=== PATIENT | female | born 1970 | race Hispanic/Latino ===

== ENCOUNTER 2024-12-06 14:46 | Emergency (ER) | payer OTHER ==
[~2024-12-06] VITALS: Ht 162.6 cm; Wt 65.8 kg
[~2024-12-06 14:46] MED LIST: PANT20TA18 PO
[2024-12-06 15:45] LABS: IMMATURE GRANULOCYTE ABSOLUTE 0.05 K/uL (0-1); NUCLEATED RED BLOOD CELLS 0.0 % (0.0-0.19); PLATELET COUNT (AUTO) 188 K/uL (130-400); RED BLOOD CELL COUNT(AUTO) 5.15 MIL/uL (4.00-5.50); RED CELL DISTRIBUTION WIDTH 14.8 % (11.0-15.5); WHITE BLOOD COUNT (AUTO) 7.3 K/uL (4.8-10.8)
[2024-12-06 16:02] LABS: CREATININE 0.6 mg/dL (0.5-1.0); GLOMERULAR FILTR. RATE CALC 108 mL/min (>90); GLUCOSE,RANDOM 125 mg/dL (70-105); SODIUM SERUM 138 mmol/L (136-145); UREA NITROGEN, BLOOD 10 mg/dL (7-18)
--- NOTE | 2024-12-06 16:15 | HMCIMG ---
EXAM: CR Chest, 1 View. CLINICAL HISTORY: sob COMPARISON: None provided. FINDINGS: LUNGS: The lungs show no infiltrate or other acute finding. PLEURAL SPACES: No evidence of pleural effusion or pneumothorax. MEDIASTINUM: Cardiac size and mediastinal contours within normal limits. BONES: No acute osseous abnormality. IMPRESSION: No acute cardiopulmonary pathology is evident. /[place]
[2024-12-06 16:17] LABS: ASPARTATE AMINOTRANSFERASE 26 U/L (10-37); TOTAL PROTEIN, SERUM 8.4 g/dL (6.0-8.3)
--- NOTE | 2024-12-06 17:08 | ERN ---
ED Note History of Present Illness Stated Complaint: SOB Chief Complaint: Shortness of Breath Time Seen by MD: 15:26 Dictation: 54-year-old female presenting to the emergency department with shortness of breath over the past few days patient reports she has been feeling anxious and having trouble breathing with slight chest discomfort, patient denies any past medical history no cough cold congestion or fevers. Allergies: Coded Allergies: No Known Drug Allergies (Unverified Allergy, Unknown, 04/05/24) Home Meds Active Scripts Pantoprazole Sodium (Pantoprazole Sodium) 20 Mg Tablet.dr, 1 TAB PO DAILY for 30 Days, #30 TAB 0 Refills Prov:MARIA LUZ MASCORRO G[employer]ER 04/05/24 Past Medical History Past Medical History: No Pertinent History Surgical History: Review of System Dictation Constitutional: Negative for fever,chills, and weight loss Eyes: Negative for injury, pain,redness, and discharge ENT: Negative for injury,pain or swelling Cardiovascular: Negative for chest pain, palpitations, and edema Respiratory: Per HPI Abdomen/GI: Negative for abdominal pain, nausea, vomiting, diarrhea, and constipation Back: Negative for injury and pain : Negative for injury, bleeding and discharge MS/Extremity: Negative for injury and deformity Skin: Negative for rash, and discoloration Neuro: Negative for headache, weakness, numbness, tingling, and seizure Psych: Negative for suicide ideation, homicidal ideation, and hallucinations Initial Vital Sign VS Vital Signs Date Time Temp Pulse Resp B/P (MAP) Pulse Ox O2 Delivery O2 Flow Rate FiO2 12/06/24 14:56 98.6 86 18 160/73 100 Room Air 12/06/24 15:30 0 21 Physical Exam Dictation General: awake, alert, NAD Head/Face: Normocephalic, atraumatic Eyes: PERRL, EOMI, vision at baseline ENT: oral cavity clear, TMs clear, no signs of infection Neck: Trachea midline, supple, no nuchal rigidity Cardiovascular: RRR, normal S1/S2, No MRGs, no JVD Respiratory: CTAB, no respiratory distress, No rales or wheezes Abdomen: Soft, non-tender, non-distended, normal bowel sounds, no guarding or rebound. Skin: Warm, dry, normal turgor, no rash MS/Extremity: Pulses equal, no cyanosis, neurovascular intact, FROM Neuro: COAx4, GCS 15, strength 5/5, CN 2-12 intact, normal cerebellar exam, normal gait, Psych: Normal behavior, mood, and affect normal Results (Laboratory/Radiology) Laboratory/Radiology Laboratory Tests Test 12/06/24 15:37 12/06/24 15:55 White Blood Count 7.3 K/uL (4.8-10.8) Red Blood Count 5.15 MIL/uL (4.00-5.50) Hemoglobin 13.9 g/dL (12.0-16.0) Hematocrit 42.0 % (36-48) Mean Corpuscular Volume 81.6 fL (79-99) Mean Corpuscular Hemoglobin 27.0 pg (27.0-33.0) Mean Corpuscular Hemoglobin Concent 33.1 g/dL (32.0-36.0) Red Cell Distribution Width 14.8 % (11.0-15.5) Platelet Count 188 K/uL (130-400) Mean Platelet Volume 11.5 fL (7.5-10.5) H Immature Granulocyte % (Auto) 0.7 % (0-1) Neutrophils (%) (Auto) 77.9 % (40.0-77.0) H Lymphocytes (%) (Auto) 14.5 % (21.0-51.0) L Monocytes (%) (Auto) 6.2 % (3.0-13.0) Eosinophils (%) (Auto) 0.1 % (0.0-8.0) Basophils (%) (Auto) 0.6 % (0.0-5.0) Neutrophils # (Auto) 5.7 K/uL (1.8-7.7) Lymphocytes # (Auto) 1.1 K/uL (1.0-4.8) Monocytes # (Auto) 0.5 K/uL (0.1-1.0) Eosinophils # (Auto) 0.01 K/uL (0.00-0.70) Basophils # (Auto) 0.04 K/uL (0.00-0.20) Absolute Immature Granulocyte (auto 0.05 K/uL (0-1) Nucleated Red Blood Cells 0.0 % (0.0-0.19) Sodium Level 138 mmol/L (136-145) Potassium Level 3.7 mmol/L (3.5-5.1) Chloride Level 102 mmol/L (101-111) Carbon Dioxide Level 27 mmol/L (21-32) Blood Urea Nitrogen 10 mg/dL (7-18) Creatinine 0.6 mg/dL (0.5-1.0) Glomerular Filtration Rate Calc 108 mL/min (>90) Random Glucose 125 mg/dL (70-105) H Lactic Acid Level 2.6 mmol/L (0.8-2.5) H Total Calcium 9.0 mg/dL (8.5-10.1) Total Bilirubin 0.2 mg/dL (0.2-1.0) Direct Bilirubin < 0.1 mg/dL (0.0-0.3) Aspartate Amino Transf (AST/SGOT) 26 U/L (10-37) Alanine Aminotransferase (ALT/SGPT) 42 U/L (12-78) Alkaline Phosphatase 97 U/L (50-136) Troponin I High Sensitivity < 4 ng/L (4-50) L B-Type Natriuretic Peptide < 5 pg/mL (0-100) Total Protein 8.4 g/dL (6.0-8.3) H Albumin 4.2 g/dL (3.5-5.0) SARS-CoV-2 Antigen (Rapid) PRESUMPTIVE NEGATIVE Labs Reviewed?: Yes EKG Comment: Heart rate 78, normal sinus rhythm normal intervals no STEMI or STEMI equivalent ED Course ED Course Orders Procedure Category Date Status Time B-Type Natriuretic LAB 12/06/24 Complete Peptide 15:26 Covid19 (Sars Antigen LAB 12/06/24 Complete Rapid) 15:26 12 Lead Ekg Tracing- EKG 12/06/24 Logged Technical 15:26 Basic Metabolic Panel LAB 12/06/24 Complete 15:26 Blood Cult ANILA 12/06/24 In Process 15:26 Cbc With Differential LAB 12/06/24 Complete 15:26 Hepatic Function Panel LAB 12/06/24 Complete 15:26 Lactic Acid LAB 12/06/24 Complete 15:26 Troponin I High LAB 12/06/24 Complete Sensitivity 15:26 Chest 1vw RAD 12/06/24 Resulted 15:26 Vital Signs Date Time Temp Pulse Resp B/P (MAP) Pulse Ox O2 Delivery O2 Flow Rate FiO2 12/06/24 15:30 99.0 67 20 141/72 97 Room Air* 0 21 12/06/24 14:56 98.6 86 18 160/73 100 Room Air Medical Decision Making MDM MDM: Differential diagnosis: Rationale: Tests considered and ordered secondary to shared decision making include: Previous outside records reviewed: Old ER visits. Risk of complication and/or morbidity or mortality of patient management: None Medications-Per medication reconciliation Need for hospitalization: Patient does not meet criteria for hospitalization. Need for emergency major/minor surgery: No There are no social concerns with this patient. Prescription drug management Prescriptions will include symptomatic care Patient's prior external medical records from other ER visits were reviewed by me as indicated. Prior testing and results from previous visits were reviewed. Prior tests were taken into account with medical decision making and resource utilization, independent historian/historians were used to obtain complete medical history. I independently interpreted the test that were performed, results were reviewed by me and considered findings on radiology if ordered. Medical management and examination interpretation discussions were had by me with other qualified healthcare professionals as indicated for the patient's care. 54 year-old female with shortness of breath stable exam negative workup, no clin ical risk factors for pulmonary emboli, patient is oxygenating well on room air no distress no chest pain at current time stable for discharge and follow up with primary care doctor DX & DISP Disposition: Discharge Departure Impression: Primary Impression: Dyspnea Condition: Stable Referrals: SELF,REFERRAL (PCP) TEODORO MORENO MD Dec 06, 2024 17:08
[2024-12-06 17:15] VITALS: BP 119/64; PULSE 70; RESP 20; TEMP 97.6; O2SAT 98
== END 2024-12-06 17:34 | disposition home or self-care (01) ==
LOC: EDH 14:46
DX: R06.00 Dyspnea, unspecified (principal); Z20.822 Contact with and (suspected) exposure to COVID-19; Z79.899 Other long term (current) drug therapy
CPT/HCPCS: 36415; 71045; 80048; 80076; 83605; 83880; 84484; 85025; 87040; 87426; 99284